=== PATIENT | male | born 1995 | race Caucasian/White ===

== ENCOUNTER → 2018-11-05 11:41 | Outpatient (CLI) | payer OTHER, SELFPAY ==
--- NOTE | 2018-11-05 | DI.MRI.S_ITS ---
PROCEDURE: MR CERVICAL SPINE WO CON INDICATIONS: CERVICALGIA TECHNIQUE: Noncontrast sagittal T1 spin echo and T2 fast spin echo, sagittal STIR, foraminal oblique sagittal T2 fast spin echo, and axial gradient echo or T2 fast spin echo through the cervical spine. COMPARISON: None. FINDINGS: Image quality: Excellent. Alignment and Curvature: There is normal bony alignment. There is straightening of normal cervical spine curvature. Bone Marrow: Marrow demonstrates normal overall signal. Spinal Cord: Visualized spinal cord has normal size and signal. No cerebellar tonsillar herniation. Paraspinous Soft Tissues: No paravertebral masses. Prevertebral soft tissues are normal in thickness. C2-C3: Normal appearance. C3-C4: Loss of disc signal. No central stenosis. No neural foraminal narrowing. No neural impingement. C4-C5: Loss of disc signal. No central stenosis. No neural foraminal narrowing. No neural impingement. C5-C6: Loss of the signal. Minimal, diffuse disc bulge. No central stenosis. Mild right uncovertebral joint hypertrophy. Mild right neural foraminal narrowing. No neural impingement. C6-C7: Loss of disc signal. Mild, diffuse disc bulge. Large right central disc extrusion. Extruded disc material abuts and flattens the anterior aspect of the cervical spinal cord and impinges on the exiting right C7 nerve root. Moderate to severe narrowing of the central canal. Moderate right and mild left uncovertebral joint hypertrophy. Moderate right and mild left neural foraminal narrowing. C7-T1: Normal appearance. IMPRESSION: 1. Multilevel degenerative disease. 2. Multilevel uncovertebral hypertrophy. 3. Large right central C6-C7 disc extrusion which abuts and slightly flattens the anterior right margin of the cervical spinal cord and impinges on the exiting right C7 nerve root. Please correlate with clinical data. 3. [id number] C6 on C7 central canal narrowing. 5. Mild right C5-C6 neural foraminal narrowing. Moderate right and mild left C6-C7 neural foraminal narrowing. Dictated by: Rajani Alejandre MD, PhD on 11/05/2018 at 13:38 Approved by: Rajani Alejandre MD, PhD on 11/05/2018 at 13:43
== END ==
DX: M50.323 Other cervical disc degeneration at C6-C7 level (principal); M48.02 Spinal stenosis, cervical region
CPT/HCPCS: 72141